=== PATIENT | male | born 1990 | race Caucasian/White ===

== ENCOUNTER → 2023-11-24 | Outpatient (CLI) | payer MEDICAID, SELFPAY ==
--- NOTE | 2023-11-24 09:13 | MRI_ITS ---
EXAM: MR RIGHT LOWER EXTREMITY WITHOUT INTRAVENOUS CONTRAST, KNEE CLINICAL INDICATION: pain, locking, effusion, assess meniscus tear TECHNIQUE: Multiplanar and multisequence MR images of the right knee without intravenous contrast. COMPARISON: Knee radiography November 10, 2023 FINDINGS: BONES/JOINTS: There is also no significant anterior translation of the tibia relative to the femur. Small subchondral cyst at the mid weightbearing portion of the lateral femoral condyle reflecting overlying full-thickness fissure or chondral disease. No fracture. No synovial hypertrophy. No intra-articular body. EXTENSOR MECHANISM: Unremarkable. MEDIAL MENISCUS: Tear of the posterior root ligament of the medial meniscus. LATERAL MENISCUS: Unremarkable. MEDIAL CAPSULE/SUPPORTING STRUCTURES: Unremarkable. Intact. LATERAL CAPSULE/SUPPORTING STRUCTURES: Unremarkable. Lateral collateral ligamentous complex, inclusive of the popliteal tendon, are intact. ANTERIOR CRUCIATE LIGAMENT: Altered signal of the anterior cruciate ligament suggesting a moderate high-grade tearing although some of the fibers appear to be intact. POSTERIOR CRUCIATE LIGAMENT: Unremarkable. Intact. MUSCLES: Unremarkable. CARTILAGE: Small subchondral cyst at the mid weightbearing portion of the lateral femoral condyle reflecting overlying full-thickness fissure or chondral disease. FLUID: A large suprapatellar joint effusion with mild synovitis. Small Hook''s cyst. OTHER SOFT TISSUES: See above. OTHER FINDINGS: No significant peripheral extrusion of the body segment. MRI/Lower Ext Joint Only (Routine) IMPRESSION: 1. Tear of the posterior root ligament of the medial meniscus. 2. Altered signal of the anterior cruciate ligament suggesting a moderate high-grade tearing although some of the fibers appear to be intact. 3. Small subchondral cyst at the mid weightbearing portion of the lateral femoral condyle reflecting overlying full-thickness fissure or chondral disease. 4. Large suprapatellar joint effusion with small Hook''s cyst. Electronically Signed: Olegario Galaviz MD at 18:41 EDT ,
== END | disposition home or self-care (01) ==
LOC: MRI 12:05
PROVIDERS: PCP Pediatrics; Referring Provider Orthopaedic Surgery Sports Medicine; Visit Provider Orthopaedic Surgery Sports Medicine
DX: M25.561 Pain in right knee (principal)
CPT/HCPCS: 73721

== ENCOUNTER 2023-12-10 07:00 | Outpatient (RCR) | payer MEDICAID, SELFPAY ==
--- NOTE | 2023-11-17 08:20 | HP.PTEVAL ---
Patient's Visit Information Visit Information Visit Information: SANDRA RAJAN is a 33 year old M referred to Physical Therapy by Dr. Tor Renee MD with a diagnosis of R shoulder impingement/pain. Date of Evaluation: 11/17/23 Physical Therapist: ROSY Adam Visit Plan Frequency: 2x /Week Duration: 6 Weeks Plan: 2X/ week for 6 weeks for SCAPULAR stability, posture, RC strength, with HEP HEP: Green mid rows, green double ER (painfree range), scapular retraction Subjective Subjective: Pt reports that he hurt his RC last year and just pushed it off. He did some light band work at home. It keeps getting worse. He got a cortisone shot in his shoulder and told him to go to therapy. His shot was last week . He reports that his shoulder is an ache since the shot. He is sleeping alittle better. The Dr feels that his RC is not torn but just inflammed. He does BOW hunting and can not pull his bow back and could not barragan last year. He is R handed. He has not done too much since his cortisone shot. Pain R shoulder pain: Pain Intensity (Out of 10): 1 Comment: when goes to lift it 9/10 Objective Objective: R handed R manager payment strength 145 and L 123 R shoulder AROM: R shoulder Flex 160 and L 178 R ABD 141 and L 175 R IR L2 and L T12 R ER 55 and l 68 UE MMT: R shoulder flex 19.7 and L 20 R shoulder ABD 11.4 and L 19.3 R shoulder ER 9.9 and L 16.8 R shoulder IR 18.1 and L 15.1 Posture: very rounded shoulders and rounded thoracic spine Palpation: tender under the anterior acromion and anterior shoulder +HK for impingement R -Empty can for pain and weakness R Bicep B 4+/5 with no pain Balance/Special Test Scores Quick DASH Score: 34.0900 Goals Goal 1:: I HEP Goal Time Frame: 6-8 Weeks Goal 2:: Be able to pull his [place] back without pain Goal Time Frame: 6-8 Weeks Goal 3:: Increase posture to be able to sit with less rounded shoulders during therapy Goal Time Frame: 6-8 Weeks Goal 4:: Increase UE MMT (at the time of the eval: UE MMT: R shoulder flex 19.7 and L 20 R shoulder ABD 11.4 and L 19.3 R shoulder ER 9.9 and L 16.8 R shoulder IR 18.1 and L 15.1). Rehabilitation Potential Rehabilitation Potential: Good Anticipated Interventions Patient/Client Instruction: Educate patient on: Condition and Plan of Care For the Purpose of:: To decrease pain, To increase ROM, To improve nutrient delivery to tissue, To improve muscle performance and motor function, To improve ability to perform ADL's, To increase tolerance to activity/condition/position, To improve performance and independence with ADL's, To decrease level of supervision to perform tasks, To improve ability of physical actions for home/community/work/leisure, To improve health of tissue, To decrease soft tissue restriction and To increase flexibility/ROM Therapeutic Exercise to Include: Strength training, Endurance training, Body mechanics, Postural training, Flexibilty training, Neuromotor development, Passive ROM, Active ROM and Scapular Strength/Stabilization For the Purpose of:: To decrease pain, To increase ROM, To improve nutrient delivery to tissue, To increase oxygenation perfusion, To improve muscle performance and motor function, To improve ability to perform ADL's, To increase tolerance to activity/condition/position, To improve health of tissue, To decrease soft tissue restriction and To increase flexibility/ROM Manual Therapy Techniques to Include: Mobilization and Passive ROM For the Purpose of:: To decrease pain, To increase ROM, To improve nutrient delivery to tissue, To improve muscle performance and motor function, To improve health of tissue, To decrease soft tissue restriction and To increase flexibility/ROM Text: Thank you for the opportunity to evaluate your patient. For Medicare and Medicare HMO plans, please review the plan of care and approve it. It will need to be FAXED BACK to us at [phone] for Medicare purposes. For Medicare only, by signing this I certify the plan of care. Please let me know if there are questions or concerns regarding this plan of care. Physician Signature: Date:
--- NOTE | 2024-02-13 13:27 | HP.PT.NRP ---
Patient Information Patient Information: SANDRA RAJAN was seen in my office for initial evaluation on 11/17/23. The following Plan of Care was established for this patient: POC Established Initial Frequency: 2x /Week Initial Duration: 6 Weeks Anticipated Interventions Patient/Client Instruction: Educate patient on: Condition and Plan of Care For the Purpose of:: To decrease pain, To increase ROM, To improve nutrient delivery to tissue, To improve muscle performance and motor function, To improve ability to perform ADL's, To increase tolerance to activity/condition/position, To improve performance and independence with ADL's, To decrease level of supervision to perform tasks, To improve ability of physical actions for home/community/work/leisure, To improve health of tissue, To decrease soft tissue restriction and To increase flexibility/ROM Therapeutic Exercise to Include: Strength training, Endurance training, Body mechanics, Postural training, Flexibilty training, Neuromotor development, Passive ROM, Active ROM and Scapular Strength/Stabilization For the Purpose of:: To decrease pain, To increase ROM, To improve nutrient delivery to tissue, To increase oxygenation perfusion, To improve muscle performance and motor function, To improve ability to perform ADL's, To increase tolerance to activity/condition/position, To improve health of tissue, To decrease soft tissue restriction and To increase flexibility/ROM Manual Therapy Techniques to Include: Mobilization and Passive ROM For the Purpose of:: To decrease pain, To increase ROM, To improve nutrient delivery to tissue, To improve muscle performance and motor function, To improve health of tissue, To decrease soft tissue restriction and To increase flexibility/ROM Last Seen Last Seen: This patient was last seen in our office 12/10/23. Pertinent comments regarding their Physical therapy will appear below: [facility] At this point I will be discontinuing this patient from physical therapy. I would be happy to see this patient again in the future if found appropriate by the physician. Thank you! Yuridia Phoenix, ROSY Balance/Gait/Functional tests Balance/Special Test Scores Quick DASH Score: 34.0900
== END 2023-12-10 19:00 | disposition home or self-care (01) ==
LOC: PT 07:00
PROVIDERS: PCP Pediatrics; Referring Provider Orthopaedic Surgery Sports Medicine; Visit Provider Orthopaedic Surgery Sports Medicine
DX: M25.811 Other specified joint disorders, right shoulder (principal); M25.511 Pain in right shoulder
CPT/HCPCS: 97110; 97161; 97530

== ENCOUNTER 2024-12-20 12:30 | Emergency (ER) | payer MEDICAID, SELFPAY ==
[2024-12-20 12:31] VITALS: BP 192/112; PULSE 74; RESP 19; TEMP 36.6; O2SAT 98
[2024-12-20 12:41] VITALS: BMI 42.0
--- NOTE | 2024-12-20 13:21 | RAD_ITS ---
PROCEDURE: KNEE 4 OR MORE VIEWS 12/20/2024 REASON FOR EXAM: FELT A POP Left knee pain. Left knee popping. TECHNIQUE: 4 view(s) of the left knee COMPARISON: None FINDINGS: Bones: Left knee appears intact. No fracture or dislocation seen. Joints: No significant arthritis. Alignment: Alignment appears anatomic. Effusion: Increased density superior to the patellofemoral articulation suspicious for knee joint effusion. Soft tissues: Radiopaque foreign bodies. RAD/Knee 4 or More Views IMPRESSION: 1. Suspected knee joint effusion. 2. No evidence of fracture [facility]
[2024-12-20] MEDS: Ketorolac 30 MG/ML Syringe IM (13:45)
--- NOTE | 2024-12-20 14:40 | EDS_ITS ---
HPI History of Present Illness Chief Complaint: Lower Extremity Injury Narrative Narrative: Patient is a 34-year-old male who presented to the emergency department the chief complaint of left knee pain. Patient states that yesterday he was trying to throw baseball when his left foot slipped and noted that he felt a pop in the back of his knee. He states that he tried to see if today if things were getting better and he states that they were in fact not therefore he came here for further evaluation management. He states that he has taken some ibuprofen for pain control without much relief. [facility] Medical History Tear of medial meniscus of right knee Impingement of right shoulder Right shoulder pain Left shoulder pain Tonsillectomy planned Right knee pain Home Medications ?Medication ?Instructions ?Recorded ?Last Taken ?Type cholecalciferol (vitamin D3) 25 25 mcg PO DAILY Unknown History mcg (1,000 unit) capsule lisinopril 5 mg tablet 5 mg PO DAILY 11/10/23 Unkno wn History magnesium hydroxide 400 mg/5 mL 5 ml PO DAILY PRN 03/27 Unknown History oral suspension vitamin B complex 1 tab PO DAILY 11/10/23 Unkn own History Allergy/AdvReac Type Severity Reaction Status Date / Time amoxicillin (From Augmentin) AdvReac Hives Verified 12/20/24 12:31 cigarette smoke AdvReac Other Verified 12/20/24 12:31 clavulanic acid (From AdvReac Hives Verified 12/20/24 12:31 Augmentin) Family History Other Cancer Hypertension Surgical History H/O removal of cyst Social History household members: spouse and children Smoking Status: Never smoker alcohol intake: never what type of physical activity do you participate in: walking, swimming and other details: archery, baseball ROS ROS ED ROS Narrative Constitutional: Denies headaches, lightness, dizziness Cardiovascular: Denies chest pain Respiratory: Denies shortness of breath Neurological: Denies numbness, weakness, tingling Musculoskeletal: Complains of left knee pain and swelling as noted above Skin: Denies any rashes or lesions EXAM Physical Exam Narrative Exam Narrative: General: Patient lying in bed rest comfortably did not appear to be acute distress Head: Atraumatic, normocephalic Eyes: PERRL bilateral, EOMI bilateral, no conjunctival injection noted Neck: Soft, supple, trachea midline Cardiovascular: Regular rate and rhythm no murmurs gallops rubs noted Respiratory: Clear to auscultation bilaterally Musculoskeletal: Patient is able to flex and extend his knee states that his slightly painful for him to do so but has full range of motion. Patient's extensor mechanism appears intact, compartments are soft and compressible Extremities: DP pulses +2/4 in the bilateral extremities, +5/5 strength noted in the bilateral upper and lower extremities Neurological: Patient following commands knew that he was at [facility] year is 2024. Sensation grossly intact in the bilateral lower extremities Skin: Warm, dry, intact no rashes or lesions noted Const Vital Signs: 12/20/24 12:31 Temperature 98 F Temperature Source Temporal Pulse Rate 74 Respiratory Rate 19 H Blood Pressure 192/112 H Blood Pressure Mean 138 Pulse Ox 98 Oxygen Delivery Method Room Air MDM MDM MDM Narrative Medical decision making narrative: Patient is a 34-year-old male who presented to the emergency department chief complaint of left knee pain after slipping yesterday while playing baseball. On the differential diagnose includes but not limited to musculoskeletal strain, effusion, patella dislocation. Once workup is obtained reviewed he will be reevaluated. Patient given Toradol for pain. Patient's x-ray reviewed by myself by radiology showed a joint effusion no acute fracture or dislocation. At this point time patient would like to go home he was advised to ice, elevate and follow-up with orthopedics in outpatient setting. He is advised to rotate Tylenol and I Profen [id number] and return with any other concerns or worsening symptoms. He is agreeable to plan as well as significant other bedside all question concerns answered he is discharged home in stable condition. Radiography Diagnostic Testing: Clinical Impression(s) from Imaging Studies Knee X-Ray 12/20/24 13:21 IMPRESSION: 1. Suspected knee joint effusion. 2. No evidence of fracture Reading Location: [facility] Discharge Plan Triage Chief Complaint: Lower Extremity Injury ED Provider: Kenn Owen Dx/Rx/DC Orders Clinical Impression: Knee pain, left Prescriptions: No Action lisinopril 5 mg tablet 5 mg PO DAILY vitamin B complex Tablet 1 tab PO DAILY cholecalciferol (vitamin D3) 25 mcg (1,000 unit) capsule 25 mcg PO DAILY magnesium hydroxide 400 mg/5 mL suspension 5 ml PO DAILY PRN Primary Care Provider: Kaela Hayes Referrals: Ralf Lynn MD [Med Staff - Active Staff] - Kaela Hayes NP-C [Primary Care Provider] - Activity Restrictions/Additional Instructions: Follow-up with your primary care physician and follow-up with the orthopedic surgeon that you referred to. Ice, elevate use crutches as needed for comfort you can bear weight as tolerated. Your x-ray did not show any acute fractures or dislocations. Rotate Tylenol and ibuprofen [id number] when you do this you can take something every 3 hours max dose of Tylenol in 24 hours is 4000 mg max dose of ibuprofen in 24 hours 3200 mg. Return with worsening symptoms or concerns. Print Language: [place] Disposition Disposition: Home, Self Care
[2024-12-20 15:09] VITALS: BP 128/67; PULSE 87; RESP 18; TEMP 36.8; O2SAT 97
== END 2024-12-20 15:11 | disposition home or self-care (01) ==
PROVIDERS: Emergency Provider Emergency Medicine; PCP Nurse Practitioner Family; Visit Provider Emergency Medicine
DX: M25.562 Pain in left knee (principal); M79.89 Other specified soft tissue disorders; W18.49XA Other slipping, tripping and stumbling without falling, initial encounter; Y93.64 Activity, baseball
CPT/HCPCS: 73564; 96372; 99283